=== PATIENT | male | born 1975 | race Caucasian/White ===

== ENCOUNTER 2019-02-21 13:12 | Emergency (ER) | payer OTHER ==
[~2019-02-21] VITALS: Ht 182.9 cm; Wt 104.3 kg
--- NOTE | ~2019-02-21 | PROC ---
[address] [address] PROCEDURE REPORT Name: GINA JARRETT Room: [facility] Ritu#: [id number] Admission: 02/21/19 Attend Phys: Discharge: 02/21/19 Date of : 71 Report #: [id number] THIS REPORT FOR: //name// For GI report, please see the Provation report in Perceptive 7 content. By: 0647Medical Records Staff SUSHILA /YINA
[~2019-02-21 13:12] MED LIST: ADVAIR 250-501 EACH; MAXAIR AUTOHALE14 G1; NORCO 5-325 TA1 EACH PO
[2019-02-21] MEDS ORDERED: DULERA 100 MCG/13 GM (13:22)
[2019-02-21] MEDS ORDERED: PROBIOTIC1 EAC7 PO (13:22)
[2019-02-21] MEDS ORDERED: SUPER THERAVIT1 EACH PO (13:22)
[2019-02-21 13:58] LABS: HEMATOCRIT 43.4 % (42.0-52.0); HEMOGLOBIN 15.4 gm/dL (14.0-18.0); MCH 29.5 pg (26.0-34.0); MCHC 35.6 g/dL (28.0-37.0); MCV 82.9 fL (80.0-100.0); MPV 7.2 fl. (7.2-11.1); RBC 5.23 mil/uL (4.50-6.00); RDW-CV 12.5 % (10.5-14.5); WBC 8.1 thou/uL (4.0-11.0)
[2019-02-21 14:10] LABS: CALCIUM 8.8 mg/dL (8.5-10.1); POTASSIUM 3.2 mmol/L (3.5-5.1)
[2019-02-21 15:11] VITALS: BP 98/55
[2019-02-21] MEDS ORDERED: PROTONIX40 M2 PO (16:41)
--- NOTE | 2019-02-22 12:56 | EKG ---
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: : 1975 Requested By: Kojo Delaney Order Number: [id number] MD: Joao Kaur Measurements Intervals [place] Rate: 88 P: 8 MN: 176 QRS: 17 QRSD: 112 T: 39 QT: 370 QTc: 448 Interpretive Statements Sinus rhythm Borderline intraventricular conduction delay Baseline wander in lead(s) V2,V3,V4 Compared to ECG 03/27/2010 14:56:41 No significant changes Electronically Signed On 02-22-2019 12:56:10 [employer] by Joao Kaur [email or web address] <ELECTRONICALLY SIGNED> By: Gopal Kaur MD, [facility] 02/22/19 1256 1344 1344 Gopal Kaur MD, [facility] /EPI
--- NOTE | 2019-02-25 17:06 | PATH ---
[address] [address] PATHOLOGY RPT PROCEDURE Name: DARNELL GONZALEZ [id number] Admission: 02/21/19 Date of : 71 Discharge: 02/21/19 Report #: [id number] Path Case #: [id number] [facility] Accession Number: [id number] . 01 Material submitted: . PART A: duodenum - DUODENAL BIOPSY PART B: esophagus - ESOPHAGEAL BX . 01 Clinical history: . None provided . 02 Diagnosis: A. Duodenal biopsy: - Mild nonspecific active duodenitis with prominent fundic metaplasia suggesting peptic ulcer disease, negative for granulomas, significant intraepithelial lymphocytosis and dysplasia/adenomatous change. (See comment) . B. 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 See comment. . (CAROL ANN:deena/colin; 02/24/2019) [facility] 02/25/2019 1017 Local . 02 Comment: A. In the duodenal biopsy (A), there is some villous flattening which is attributable to the inflammation present and there is no significant intraepithelial lymphocytosis and therefore celiac sprue is thought to be unlikely. . B. Specimen B reviewed with Dr. Jag Gonzalez who agrees with the diagnosis. . (CAROL ANN:colin; 02/24/2019) . 02 Electronically signed: . Lexa Hammond MD, Pathologist NPI- [id number] . 01 Gross description: . A. Received in formalin labeled "Darnell Gonzalez duodenal," and additionally labeled on the requisition as "rule out celiac sprue," are 5 segments of forte soft tissue measuring 1.0 x 0.9 x 0.3 cm in aggregate dimensions and ranging from 0.3 to 0.4 cm in maximum dimension. The specimen is submitted entirely in cassette [place]1. [place] [address] PATHOLOGY RPT PROCEDURE Name: DARNELL GONZALEZ [id number] Admission: 02/21/19 Date of : 71 Discharge: 02/21/19 Report #: [id number] Path Case #: [id number] . B. Received in formalin labeled "Darnell Gonzalez esophageal," and additionally labeled on the requisition as "rule out Fay's esophagus," are 4 segments of forte soft tissue measuring 0.8 x 0.6 x 0.2 cm in aggregate dimensions and ranging from 0.2 to 0.4 cm in maximum dimension. The specimen is submitted entirely in cassette B1. (TSD; 02/23/2019) TOB/TOB 02/23/2019 2211 Local . 02 Pathologist provided ICD-10: K29.80, K20.9 . 02 CPT . 734343, 211706 Specimen Comment: A courtesy copy of this report has been sent to [phone], [phone] Specimen Comment: [id number] Specimen Comment: Report sent to / DR DIXON Performed at: [address], [place], [place] [id number] MD Rafa Melchor MD Phone: [phone] Performed at: [address] [facility] [address], [place], [place] [id number] MD Lexa Hammond MD Phone: [phone]
== END 2019-02-21 15:12 | disposition still patient (30) ==
LOC: M.ERS 13:12
PROVIDERS: Emergency Medicine Emergency Medical Services
DX: T18.128A Food in esophagus causing other injury, initial encounter (principal); J45.909 Unspecified asthma, uncomplicated; X58.XXXA Exposure to other specified factors, initial encounter; Y93.89 Activity, other specified; Y92.89 Other specified places as the place of occurrence of the external cause; Y99.8 Other external cause status